=== PATIENT | male | born 2000 | race Caucasian/White ===

== ENCOUNTER → 2021-12-17 07:49 | Outpatient (CLI) | payer BC, SELFPAY | PROVIDERS: Visit Provider Orthopaedic Surgery | DX: Z01.812 Encounter for preprocedural laboratory examination (principal); Z11.52 Encounter for screening for COVID-19 | CPT/HCPCS: C9803; U0003; U0005 ==

== ENCOUNTER → 2021-12-27 08:14 | Outpatient (CLI) | payer BC, SELFPAY | PROVIDERS: Visit Provider Orthopaedic Surgery | DX: Z01.812 Encounter for preprocedural laboratory examination (principal); Z11.52 Encounter for screening for COVID-19 | CPT/HCPCS: C9803; U0003; U0005 ==

== ENCOUNTER 2022-01-31 12:40 | Outpatient (RCR) | payer BC, SELFPAY | END 2022-02-23 07:49 | disposition home or self-care (01) | LOC: PT.CARL 12:40 | PROVIDERS: Visit Provider Orthopaedic Surgery | DX: D49.2 Neoplasm of unspecified behavior of bone, soft tissue, and skin (principal) | CPT/HCPCS: 97110; 97140; 97163 ==

== ENCOUNTER 2023-11-04 10:59 | Emergency (ER) | payer BC, SELFPAY ==
[2023-11-04 11:01] VITALS: BP 128/74; PULSE 68; RESP 16; TEMP 36.4; O2SAT 97; BMI 28.8
--- NOTE | 2023-11-04 11:23 | PC.NURSE ---
DR CHAVIS AT BEDSIDE
--- NOTE | 2023-11-04 11:32 | ED_ITS ---
Discharge Plan Disposition Patient Disposition: Home, Self-Care Chief Complaint: Skin/Abscess/Foreign Body Referrals Follow up/Referrals: Antolin Galvez MD [Primary Care Provider] - See instructions Activity Restrictions/Add. Instructions Additional Instructions/Restrictions: At this time it was felt you are safe to be discharged home. If signs of infection such as spreading redness or pus draining from the wound do not hesitate to return for continued evaluation or follow-up with your family doctor. Clinical Impressions Clinical Impression: Removal of staple Instructions Patient Instructions: DI for Skin Abscess Discharge ED Provider: Jose Harris General Adult HPI General Chief complaint: Skin/Abscess/Foreign Body Stated complaint: staple in left pointer finger Time Seen by Provider: 11/04/23 11:00 Mode of Arrival: Ambulatory Source of Information: Patient Limitations: No Limitations Description of Symptoms (Recalled from ER Triage Doc. by RN): Patient reports getting a staple stuck in his left index finger. History of Present Illness HPI narrative: Patient is a 23-year-old male last tetanus unknown presents with a staple to his left volar index finger pad. Patient was attempting to stable his taxes when he looked down and the staple was protruding from his finger pad. He presents here for continued evaluation. Related Data Allergies Allergy/AdvReac Type Severity Reaction Status Date / Time No Known Allergies Allergy Verified 12/08/22 08:39 [facility] Disclaimer: The information contained in this section may have been updated after the patient was seen, as this information can be updated by other users. 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 Surgical History Vina teeth removed Family History Father Coronary artery disease Social History Smoking Status: Current every day smoker tobacco type: e-cigarettes second hand exposure: No alcohol intake: current counseling given: Yes counseling provided: provider counseling current occupational status: employed Travel in the last 8 weeks: None household members: spouse housing: house marital status: ROS Obtained: Yes Systems reviewed as appropriate & no additional complaints except as documented Physical Exam General General appearance: alert Respiratory Respiratory exam: Absent respiratory distress Cardiovascular Cardiovascular exam: Present regular rate Extremities Exam Extremities exam: Present other (Staple protruding from the index finger pad.) Neurological Exam Neurological exam: Present alert Medical Decision Making Saud Inquiry Pt receiving controlled substance: No Vital Signs: 11/04/23 11:01 Temperature 97.6 F Temperature Source Oral Pulse Rate [Radial] 68 Respiratory Rate 16 Blood Pressure [Right Arm] 128/74 Blood Pressure Mean [Right Arm] 92 Blood Pressure Source [Right Arm] Automatic Cuff Blood Pressure Position [Right Arm] Sitting 02 Sat by Pulse Oximetry 97 Oxygen Delivery Method Room Air Medical Decision Narrative: In summary patient is a 23-year-old male with past medical history described above presents emergency department for evaluation of staple to the finger. Patient is last Tdap greater than 5 years will be updated. Patient underwent staple removal with ease at bedside without numbing and tolerated procedure well. Patient is appropriate for discharge and was given return precautions. Procedure: Procedure performed was foreign body removal. Procedure performed by Jose Harris. Using long hemostats were clamped across the area of the staple just outside of the entry of the skin. Longitudinal traction was applied with successful removal of staple. Number of attempts was 1. Patient tolerated the procedure well. Critical Care Critical Care Time Critical Care Time: No
[2023-11-04] MEDS: TET/DIPHTH/PERT-ADULT 0.5ML SYRINGE 0.5 ML IM (11:51)
[2023-11-04 11:55] VITALS: BP 128/74; PULSE 68; RESP 16; TEMP 36.4; O2SAT 97
== END 2023-11-04 11:57 | disposition home or self-care (01) ==
PROVIDERS: Emergency Provider Emergency Medicine; PCP Family Medicine
DX: S60.451A Superficial foreign body of left index finger, initial encounter (principal); F17.290 Nicotine dependence, other tobacco product, uncomplicated; W45.8XXA Other foreign body or object entering through skin, initial encounter; Z23 Encounter for immunization
CPT/HCPCS: 90471; 90715; 99283

== ENCOUNTER 2024-02-08 16:46 | Outpatient (CLI) | payer BC, SELFPAY | END 2024-02-08 23:59 | disposition home or self-care (01) | LOC: LAB.DROPOF 16:46 | PROVIDERS: PCP Nurse Practitioner Family; Visit Provider Nurse Practitioner Family | DX: M54.50 Low back pain, unspecified (principal) | CPT/HCPCS: 87086 ==

== ENCOUNTER 2024-04-30 07:32 | Outpatient (CLI) | payer BC, SELFPAY ==
--- NOTE | 2024-04-30 07:33 | US_ITS ---
FINAL REPORT CLINICAL HISTORY: RUQ and chest discomfort COMPARISON: None FINDINGS: Sonographic images of the right upper quadrant were obtained. The pancreas is partially obscured.The liver has an unremarkable appearance.The gallbladder appears normal without evidence of gallstones.There is no evidence of biliary ductal dilatation.The common duct measures 2 mm. Limited images of the right kidney are unremarkable. IMPRESSION: Unremarkable right upper quadrant ultrasound. Reviewed, Interpreted and Dictated by North Pacheco III, MD Transcribed by Deann Atkins Authenticated and . [facility]
== END 2024-04-30 23:59 | disposition home or self-care (01) ==
LOC: RAD 07:33
PROVIDERS: PCP Nurse Practitioner Family; Visit Provider Nurse Practitioner Family
DX: R10.11 Right upper quadrant pain (principal)
CPT/HCPCS: 76705